=== PATIENT | male | born 1945 | race Caucasian/White ===

== ENCOUNTER 2019-01-30 21:22 | Inpatient (IN) | payer MEDICARE ==
[~2019-01-30] VITALS: Ht 185.4 cm; Wt 109.4 kg
[2019-01-30] MEDS ORDERED: PLEASE ENTER ALLERGIES MC SCH (22:00)
[2019-01-30] MEDS ORDERED: SODIUM CHLORIDE FLUSH 10ML SYR IVF ONE (22:00)
--- NOTE | 2019-01-30 22:02 | NUR ---
ROLANDA. REPORT RECEIVED EMS. PT C/O GENERALIZED WEAKNESS/JERKY MOVEMENT/UNCONTROL BLLADER X 1 MONTH AND IT'S GETTING WORSE. PT HAS HX OF A-FIB. PT DENIES CP AT THIS TIME. ALL MONITORS IN PLACE. CALL LIGHT WITHIN REACH. FAMILY AT BEDSIDE. EDMD AT BEDSIDE TO ASSESS.
--- NOTE | 2019-01-30 22:14 | NUR ---
PT PROVIDED URINAL AT BEDSIDE.
[2019-01-30 22:35] LABS: BASOPHILS # (AUTO) 0.01 x10^3/uL (0-0.1); BASOPHILS % (AUTO) 0 % (0-1); EOSINOPHILS # (AUTO) 0.02 x10^3/uL (0-0.4); EOSINOPHILS % (AUTO) 0 % (1-7); LYMPHOCYTES # (AUTO) 1.36 x10^3/uL (1-3.4); LYMPHOCYTES % (AUTO) 12 % (22-44); MD NO; MEAN CORPUSCULAR HEMOGLOBIN 28.2 pg (27.5-34.5); MEAN CORPUSCULAR HGB CONC 33.5 g/dL (33.2-36.2); MONOCYTES # (AUTO) 0.65 x10^3/uL (0.2-0.8); MONOCYTES % (AUTO) 6 % (2-9); NEUTROPHILS # (AUTO) 9.23 x10^3/uL (1.8-6.8); NEUTROPHILS % (AUTO) 82 % (42-75); PLATELET COUNT 284 x10^3/uL (130-400); RED BLOOD COUNT 5.37 x10^6/uL (4.38-5.82); RED CELL DISTRIBUTION WIDTH 14.1 % (9.4-14.8)
[2019-01-30 22:46] LABS: ALANINE AMINOTRANSFERASE 20 U/L (12-78); ALBUMIN 3.6 g/dL (3.4-5.0); ANION GAP 12 mmol/L (5-15); CALCIUM 8.7 mg/dL (8.5-10.1); CHLORIDE 83 mmol/L (98-107)
[2019-01-30 22:47] LABS: MICROSCOPIC INDICATED
[2019-01-30] MEDS ORDERED: FURO20TA3 PO (22:48)
[2019-01-30] MEDS ORDERED: SPIR25TA PO (22:48)
[2019-01-30] MEDS ORDERED: ASPI-496 PO (22:49)
[2019-01-30] MEDS ORDERED: GLUC1CAP18 PO (22:49)
[2019-01-30] MEDS ORDERED: CHOL10003 PO (22:50)
[2019-01-30 22:51] LABS: ALKALINE PHOSPHATASE 138 U/L (45-117); BILIRUBIN,TOTAL 0.8 mg/dL (0.2-1.0); TOTAL PROTEIN 6.7 g/dL (6.4-8.2)
[2019-01-30] MEDS ORDERED: APIX5TAB PO (22:51)
[2019-01-30] MEDS ORDERED: FISH1CAP PO (22:51)
[2019-01-30 22:52] LABS: CULTURE INDICATED? YES
[2019-01-30 22:52] LABS: INTERNATIONAL NORMALIZED RATIO 1.02 (0.93-1.1); PROTHROMBIN TIME 10.7 Seconds (9.6-11.5)
[2019-01-30] MEDS ORDERED: GABA600T7 PO (22:52)
[2019-01-30] MEDS ORDERED: LISI-170 PO (22:52)
[2019-01-30] MEDS ORDERED: METO50TA4 PO (22:53)
[2019-01-30] MEDS ORDERED: POTA10IV PO (22:53)
[2019-01-30] MEDS ORDERED: RIBO100T3 PO (22:54)
[2019-01-30] MEDS ORDERED: GARL10002 PO (22:54)
[2019-01-30] MEDS ORDERED: DULO30CA2 PO (22:55)
[2019-01-30] MEDS ORDERED: AMLO-150 PO (22:55)
[2019-01-30] MEDS ORDERED: POLY17PO5 PO (22:56)
[2019-01-30] MEDS ORDERED: PRAM0.125 PO (22:56)
[2019-01-30] MEDS ORDERED: HYDR-3237 PO (22:57)
[2019-01-30] MEDS ORDERED: DOXY25TA52 PO (22:58)
[2019-01-30] MEDS ORDERED: TRAZ50TA66 PO (22:58)
[2019-01-30] MEDS ORDERED: ZALE10CA PO (22:59)
[2019-01-30] MEDS ORDERED: AMIO100T4 PO (22:59)
[2019-01-30] MEDS ORDERED: SODIUM CHLORIDE 0.9% 1,000 ML IV ONE (23:18)
[2019-01-30] MEDS ORDERED: ASPIRIN 81 MG TABLET CHEW PO ONE (23:30)
[2019-01-30] MEDS ORDERED: INSULIN REGULAR 100 UNITS/ML, 3ML VIAL SQ-INSULIN ONE (23:30)
[2019-01-30] MEDS ORDERED: FLUCONAZOLE 50 MG TABLET PO ONE (23:30)
[2019-01-30] MEDS ORDERED: FLUCONAZOLE 100 MG TABLET ONE (23:31)
[2019-01-30 23:35] LABS: HEMOGLOBIN A1C 13.4 % (4.2-6.3)
[2019-01-30] MEDS ORDERED: INSULIN SINGLE DOSE, ER SQ-INSULIN ONE (23:37)
[2019-01-30 23:51] LABS: ACETONE, SERUM Small (20mg/dL) mg/dL (Negative)
--- NOTE | 2019-01-30 23:51 | NUR ---
REPORT GIVEN TO SERGIO JONES. ALL QUESTIONS ANSWERED.
--- NOTE | 2019-01-30 23:51 | NUR ---
PT MEDICATED PER EMAR. PT TOLERATED WELL. PT'S AOX4. RESPS EVEN AND UNLABORED.
[2019-01-31] MEDS ORDERED: hydrALAzine 20 MG/ML, 1ML IVPush PRN (01:00)
[2019-01-31] MEDS ORDERED: POLYETHYLENE GLYCOL 17 GM PACKET PO PRN (01:00)
[2019-01-31] MEDS ORDERED: ONDANSETRON ODT 4 MG PO PRN (01:00)
[2019-01-31] MEDS ORDERED: DOCUSATE 100 MG CAPSULE PO PRN (01:00)
[2019-01-31] MEDS ORDERED: BISACODYL 10 MG SUPP PR PRN (01:00)
[2019-01-31] MEDS ORDERED: LABETALOL 5MG/ML, 20ML IVPush PRN (01:00)
[2019-01-31] MEDS ORDERED: ONDANSETRON 2MG/ML, 2ML IVPush PRN (01:00)
[2019-01-31] MEDS ORDERED: morphine SULFATE 10 MG/ML, 1ML IVPush PRN (01:00)
[2019-01-31] MEDS ORDERED: ACETAMINOPHEN 325 MG TABLET PO PRN (01:00)
[2019-01-31] MEDS ORDERED: PROMETHAZINE 25 MG/ML, 1ML IM PRN (01:00)
[2019-01-31] MEDS: SODIUM CHLORIDE 0.9% 1,000 ML IV SCH ×2 (01:51→08:39)
[2019-01-31] MEDS: INSULIN GLARGINE 100 UNITS/ML, PEN SQ-INSULIN SCH ×2 (01:52→21:21)
[2019-01-31] MEDS ORDERED: INSULIN LISPRO 100 UNITS/ML, PEN SQ-INSULIN ONE (02:30)
[2019-01-31 03:55] VITALS: BP 140/79
[2019-01-31 05:23] LABS: BASOPHILS # (AUTO) 0.07 x10^3/uL (0-0.1); BASOPHILS % (AUTO) 1 % (0-1); EOSINOPHILS # (AUTO) 0.06 x10^3/uL (0-0.4); EOSINOPHILS % (AUTO) 0 % (1-7); LYMPHOCYTES # (AUTO) 3.58 x10^3/uL (1-3.4); LYMPHOCYTES % (AUTO) 23 % (22-44); MD NO; MEAN CORPUSCULAR HEMOGLOBIN 28.3 pg (27.5-34.5); MEAN CORPUSCULAR VOLUME 83.2 fL (81-97); MEAN PLATELET VOLUME 10.6 fL (7.4-10.4); MONOCYTES # (AUTO) 1.13 x10^3/uL (0.2-0.8); MONOCYTES % (AUTO) 7 % (2-9); NEUTROPHILS % (AUTO) 69 % (42-75); PLATELET COUNT 311 x10^3/uL (130-400); RED BLOOD COUNT 5.53 x10^6/uL (4.38-5.82); RED CELL DISTRIBUTION WIDTH 14.2 % (9.4-14.8)
[2019-01-31 05:28] LABS: ALBUMIN 3.5 g/dL (3.4-5.0); ANION GAP 11 mmol/L (5-15); CHLORIDE 96 mmol/L (98-107); TROPONIN I 0.066 ng/mL (0.000-0.045)
[2019-01-31 05:33] LABS: ALANINE AMINOTRANSFERASE 21 U/L (12-78); ALKALINE PHOSPHATASE 113 U/L (45-117); BILIRUBIN,TOTAL 0.7 mg/dL (0.2-1.0); CHOL/HDL RATIO 4.2; CHOLESTEROL, TOTAL 140 mg/dL (140-239); CREATININE 1.79 mg/dL (0.7-1.3); HDL CHOLESTEROL (DIRECT) 33 mg/dL (40-60); TOTAL PROTEIN 6.5 g/dL (6.4-8.2); TRIGLYCERIDES 195 mg/dL (50-200); VLDL CHOLESTEROL 39 mg/dL (0-25)
[2019-01-31 05:34] LABS: HDL CHOL % 24 % (26-37); LDL CHOLESTEROL,CALCULATED 68 mg/dL (54-169); LDL/HDL RATIO 2.1 (0.5-3.0)
[2019-01-31] MEDS: INSULIN LISPRO 100 UNITS/ML, PEN SQ-INSULIN SCH ×4 (08:39→21:21)
[2019-01-31] MEDS: PRAMIPEXOLE 0.125MG TABLET PO SCH (08:40)
[2019-01-31] MEDS: CHOLECALCIFEROL 1,000 UNIT TABLET PO SCH (08:40)
[2019-01-31] MEDS: GABAPENTIN 300 MG CAPSULE PO SCH (08:40)
[2019-01-31] MEDS: AMLODIPINE 5 MG TABLET PO SCH (08:40)
[2019-01-31] MEDS: DULOXETINE 30 MG CAPSULE.DR PO SCH ×2 (08:40→21:19)
[2019-01-31] MEDS: ASPIRIN 81 MG TABLET EC PO SCH (08:40)
[2019-01-31] MEDS: APIXABAN 5 MG TABLET PO SCH ×2 (08:40→21:19)
[2019-01-31] MEDS: DOXYLAMINE 25MG TABLET PO SCH (08:40)
[2019-01-31] MEDS: OMEGA-3/FISH OIL CAPSULE PO SCH (08:40)
[2019-01-31] MEDS: AMIODARONE 200 MG TABLET PO SCH (08:41)
[2019-01-31] MEDS: METOPROLOL SUCCINATE 50 MG TAB.ER.24H PO SCH (08:41)
[2019-01-31] MEDS: TRAZODONE 50MG TABLET PO SCH (08:41)
[2019-01-31 08:44] VITALS: BP 126/81
[2019-01-31] MEDS: POLYETHYLENE GLYCOL 17 GM PACKET PO SCH (08:49)
[2019-01-31] MEDS: RIBOFLAVIN 100 MG HOMEMEDPO SCH (08:49)
[2019-01-31] MEDS ORDERED: POTASSIUM CHLORIDE 40 MEQ in SODIUM CHLORIDE 0.9% 500 ML IV ONE (10:30)
[2019-01-31 11:09] LABS: TROPONIN I 0.059 ng/mL (0.000-0.045)
[2019-01-31 13:38] VITALS: BP 98/61
[2019-01-31 19:33] VITALS: BP 139/68
[2019-01-31] MEDS: ZOLPIDEM 5MG TABLET PO SCH (21:19)
[2019-01-31] MEDS: HYDROcodone/APAP 5/325 TABLET PO PRN (23:17)
[2019-02-01 00:49] VITALS: BP 119/77
[2019-02-01] MEDS: SODIUM CHLORIDE 0.9% 1,000 ML IV SCH (05:39)
[2019-02-01 06:21] LABS: BASOPHILS # (AUTO) 0.06 x10^3/uL (0-0.1); BASOPHILS % (AUTO) 1 % (0-1); EOSINOPHILS # (AUTO) 0.09 x10^3/uL (0-0.4); EOSINOPHILS % (AUTO) 1 % (1-7); LYMPHOCYTES % (AUTO) 18 % (22-44); MD NO; MEAN CORPUSCULAR HEMOGLOBIN 27.5 pg (27.5-34.5); MEAN CORPUSCULAR HGB CONC 33.2 g/dL (33.2-36.2); MEAN CORPUSCULAR VOLUME 82.9 fL (81-97); MEAN PLATELET VOLUME 10.4 fL (7.4-10.4); MONOCYTES % (AUTO) 5 % (2-9); NEUTROPHILS # (AUTO) 8.55 x10^3/uL (1.8-6.8); NEUTROPHILS % (AUTO) 76 % (42-75); PLATELET COUNT 253 x10^3/uL (130-400); RED BLOOD COUNT 5.37 x10^6/uL (4.38-5.82); RED CELL DISTRIBUTION WIDTH 14.9 % (9.4-14.8)
[2019-02-01 06:37] LABS: ANION GAP 7 mmol/L (5-15); CALCIUM 8.2 mg/dL (8.5-10.1); CHLORIDE 103 mmol/L (98-107)
[2019-02-01 06:49] LABS: CREATININE 1.37 mg/dL (0.7-1.3); THYROID STIMULATING HORMONE 0.664 mIU/L (0.358-3.740)
[2019-02-01 07:37] VITALS: BP 173/97
[2019-02-01] MEDS: DOXYLAMINE 25MG TABLET PO SCH (09:00)
[2019-02-01] MEDS: RIBOFLAVIN 100 MG HOMEMEDPO SCH (09:00)
[2019-02-01] MEDS: INSULIN LISPRO 100 UNITS/ML, PEN SQ-INSULIN SCH ×4 (09:19→20:23)
[2019-02-01 09:20] VITALS: BP 154/91
[2019-02-01] MEDS: AMIODARONE 200 MG TABLET PO SCH (09:20)
[2019-02-01] MEDS: PRAMIPEXOLE 0.125MG TABLET PO SCH (09:20)
[2019-02-01] MEDS: GABAPENTIN 300 MG CAPSULE PO SCH (09:21)
[2019-02-01] MEDS: CHOLECALCIFEROL 1,000 UNIT TABLET PO SCH (09:21)
[2019-02-01] MEDS: AMLODIPINE 5 MG TABLET PO SCH (09:21)
[2019-02-01] MEDS: OMEGA-3/FISH OIL CAPSULE PO SCH (09:21)
[2019-02-01] MEDS: TRAZODONE 50MG TABLET PO SCH (09:21)
[2019-02-01] MEDS: APIXABAN 5 MG TABLET PO SCH ×2 (09:21→20:23)
[2019-02-01] MEDS: DULOXETINE 30 MG CAPSULE.DR PO SCH ×2 (09:21→20:23)
[2019-02-01] MEDS: ASPIRIN 81 MG TABLET EC PO SCH (09:21)
[2019-02-01] MEDS: METOPROLOL SUCCINATE 50 MG TAB.ER.24H PO SCH (09:22)
[2019-02-01] MEDS: POLYETHYLENE GLYCOL 17 GM PACKET PO SCH (09:23)
[2019-02-01] MEDS: HYDROcodone/APAP 5/325 TABLET PO PRN ×2 (11:07→16:55)
[2019-02-01 13:51] VITALS: BP 91/65
[2019-02-01] MEDS ORDERED: ERGOCALCIFEROL 50,000 UNIT CAPSULE PO SCH (15:30)
[2019-02-01] MEDS ORDERED: POTASSIUM CHLORIDE 40 MEQ in SODIUM CHLORIDE 0.9% 500 ML IV ONE (15:30)
[2019-02-01] MEDS ORDERED: GADOBUTROL 10 MMOL/10 ML PFS ONE (19:11)
[2019-02-01] MEDS: INSULIN GLARGINE 100 UNITS/ML, PEN SQ-INSULIN SCH (20:22)
[2019-02-01] MEDS: ZOLPIDEM 5MG TABLET PO SCH (20:23)
[2019-02-01 21:11] VITALS: BP 120/80
[2019-02-02] MEDS: HYDROcodone/APAP 5/325 TABLET PO PRN ×3 (00:13→16:33)
[2019-02-02] MEDS ORDERED: POTASSIUM CHLORIDE 20 MEQ TAB.ER.PRT PO ONE (01:00)
[2019-02-02 03:31] VITALS: BP 155/73
[2019-02-02 06:23] LABS: BASOPHILS # (AUTO) 0.04 x10^3/uL (0-0.1); BASOPHILS % (AUTO) 0 % (0-1); EOSINOPHILS # (AUTO) 0.22 x10^3/uL (0-0.4); EOSINOPHILS % (AUTO) 2 % (1-7); LYMPHOCYTES # (AUTO) 2.91 x10^3/uL (1-3.4); LYMPHOCYTES % (AUTO) 22 % (22-44); MD NO; MEAN CORPUSCULAR HEMOGLOBIN 28.2 pg (27.5-34.5); MEAN CORPUSCULAR HGB CONC 33.6 g/dL (33.2-36.2); MEAN CORPUSCULAR VOLUME 83.9 fL (81-97); MEAN PLATELET VOLUME 11.1 fL (7.4-10.4); MONOCYTES # (AUTO) 0.81 x10^3/uL (0.2-0.8); MONOCYTES % (AUTO) 6 % (2-9); NEUTROPHILS # (AUTO) 9.28 x10^3/uL (1.8-6.8); NEUTROPHILS % (AUTO) 70 % (42-75); PLATELET COUNT 259 x10^3/uL (130-400); RED BLOOD COUNT 5.35 x10^6/uL (4.38-5.82); RED CELL DISTRIBUTION WIDTH 14.9 % (9.4-14.8)
[2019-02-02 06:28] LABS: ANION GAP 7 mmol/L (5-15); CALCIUM 8.7 mg/dL (8.5-10.1); CHLORIDE 106 mmol/L (98-107); CREATININE 1.34 mg/dL (0.7-1.3)
[2019-02-02 07:21] VITALS: BP 112/75
[2019-02-02] MEDS: INSULIN LISPRO 100 UNITS/ML, PEN SQ-INSULIN SCH ×4 (08:02→21:31)
[2019-02-02] MEDS: POLYETHYLENE GLYCOL 17 GM PACKET PO SCH (08:02)
[2019-02-02] MEDS: GABAPENTIN 300 MG CAPSULE PO SCH (08:03)
[2019-02-02] MEDS: CHOLECALCIFEROL 1,000 UNIT TABLET PO SCH (08:03)
[2019-02-02] MEDS: TRAZODONE 50MG TABLET PO SCH (08:03)
[2019-02-02] MEDS: OMEGA-3/FISH OIL CAPSULE PO SCH (08:03)
[2019-02-02] MEDS: APIXABAN 5 MG TABLET PO SCH ×2 (08:03→21:31)
[2019-02-02] MEDS: DOXYLAMINE 25MG TABLET PO SCH (08:03)
[2019-02-02] MEDS: AMIODARONE 200 MG TABLET PO SCH (08:03)
[2019-02-02] MEDS: DULOXETINE 30 MG CAPSULE.DR PO SCH ×2 (08:03→21:31)
[2019-02-02] MEDS: METOPROLOL SUCCINATE 50 MG TAB.ER.24H PO SCH (08:03)
[2019-02-02] MEDS: RIBOFLAVIN 100 MG HOMEMEDPO SCH (08:04)
[2019-02-02] MEDS: AMLODIPINE 5 MG TABLET PO SCH (08:04)
[2019-02-02] MEDS: ASPIRIN 81 MG TABLET EC PO SCH (08:04)
[2019-02-02] MEDS: PRAMIPEXOLE 0.125MG TABLET PO SCH (08:04)
[2019-02-02] MEDS ORDERED: HYDR-3240 PO (14:20)
[2019-02-02] MEDS ORDERED: INSU100I11 SQ-INSULIN (14:20)
[2019-02-02] MEDS ORDERED: INSU100I13 SQ-INSULIN (14:20)
[2019-02-02] MEDS ORDERED: POLY17PO5 PO (14:20)
[2019-02-02] MEDS ORDERED: ERGO500017 PO (14:20)
[2019-02-02] MEDS ORDERED: DOCU-131 PO (14:20)
[2019-02-02] MEDS ORDERED: MAGNESIUM CITRATE 300ML ORAL SOL ONE (14:22)
[2019-02-02] MEDS ORDERED: MAGNESIUM CITRATE 300ML ORAL SOL PO ONE (14:30)
[2019-02-02 15:40] VITALS: BP 126/76
[2019-02-02 20:16] VITALS: BP 100/69
[2019-02-02] MEDS: ZOLPIDEM 5MG TABLET PO SCH (21:31)
[2019-02-02] MEDS: INSULIN GLARGINE 100 UNITS/ML, PEN SQ-INSULIN SCH (21:32)
[2019-02-03 01:51] VITALS: BP 109/72
[2019-02-03 05:36] LABS: BASOPHILS # (AUTO) 0.01 x10^3/uL (0-0.1); BASOPHILS % (AUTO) 0 % (0-1); EOSINOPHILS # (AUTO) 0.23 x10^3/uL (0-0.4); EOSINOPHILS % (AUTO) 2 % (1-7); LYMPHOCYTES # (AUTO) 1.82 x10^3/uL (1-3.4); LYMPHOCYTES % (AUTO) 17 % (22-44); MD NO; MEAN CORPUSCULAR HGB CONC 33.6 g/dL (33.2-36.2); MEAN CORPUSCULAR VOLUME 83.4 fL (81-97); MEAN PLATELET VOLUME 10.8 fL (7.4-10.4); MONOCYTES # (AUTO) 0.51 x10^3/uL (0.2-0.8); MONOCYTES % (AUTO) 5 % (2-9); NEUTROPHILS # (AUTO) 8.45 x10^3/uL (1.8-6.8); NEUTROPHILS % (AUTO) 77 % (42-75); PLATELET COUNT 249 x10^3/uL (130-400); RED BLOOD COUNT 5.36 x10^6/uL (4.38-5.82); RED CELL DISTRIBUTION WIDTH 14.5 % (9.4-14.8)
[2019-02-03] MEDS: HYDROcodone/APAP 5/325 TABLET PO PRN ×3 (05:42→17:47)
[2019-02-03 05:49] LABS: CHLORIDE 104 mmol/L (98-107)
[2019-02-03 05:53] LABS: ANION GAP 6 mmol/L (5-15); CALCIUM 8.6 mg/dL (8.5-10.1); CREATININE 1.14 mg/dL (0.7-1.3)
[2019-02-03 06:57] VITALS: BP 124/81
[2019-02-03] MEDS: INSULIN LISPRO 100 UNITS/ML, PEN SQ-INSULIN SCH ×3 (07:00→16:00)
[2019-02-03] MEDS ORDERED: REGADENOSON 0.4 MG/5 ML SYRINGE ONE (08:35)
[2019-02-03] MEDS: POLYETHYLENE GLYCOL 17 GM PACKET PO SCH (09:00)
[2019-02-03] MEDS: TRAZODONE 50MG TABLET PO SCH (09:00)
[2019-02-03] MEDS: DOXYLAMINE 25MG TABLET PO SCH (09:00)
[2019-02-03] MEDS: RIBOFLAVIN 100 MG HOMEMEDPO SCH (09:00)
[2019-02-03] MEDS: PRAMIPEXOLE 0.125MG TABLET PO SCH (11:50)
[2019-02-03] MEDS: METOPROLOL SUCCINATE 50 MG TAB.ER.24H PO SCH (11:50)
[2019-02-03] MEDS: ASPIRIN 81 MG TABLET EC PO SCH (11:50)
[2019-02-03] MEDS: CHOLECALCIFEROL 1,000 UNIT TABLET PO SCH (11:50)
[2019-02-03] MEDS: APIXABAN 5 MG TABLET PO SCH (11:50)
[2019-02-03] MEDS: AMIODARONE 200 MG TABLET PO SCH (11:50)
[2019-02-03] MEDS: DULOXETINE 30 MG CAPSULE.DR PO SCH (11:51)
[2019-02-03] MEDS: GABAPENTIN 300 MG CAPSULE PO SCH (11:51)
[2019-02-03] MEDS: AMLODIPINE 5 MG TABLET PO SCH (11:51)
[2019-02-03] MEDS: OMEGA-3/FISH OIL CAPSULE PO SCH (11:51)
[2019-02-03 14:22] VITALS: BP 115/75
== END 2019-02-03 18:10 | DRG 682 ==
LOC: ED 23:00 → EDIP 23:12 → ED 23:40 → 4WST 01-31 00:04
PROVIDERS: ADMIT Internal Medicine; ATTEND Internal Medicine
DX: N17.0 Acute kidney failure with tubular necrosis (principal); G93.41 Metabolic encephalopathy; D68.69 Other thrombophilia; B37.49 Other urogenital candidiasis; I48.2 Chronic atrial fibrillation; M54.5 Low back pain; G89.29 Other chronic pain; E11.65 Type 2 diabetes mellitus with hyperglycemia; E55.9 Vitamin D deficiency, unspecified; E86.0 Dehydration; I11.0 Hypertensive heart disease with heart failure; I50.9 Heart failure, unspecified; M51.34 Other intervertebral disc degeneration, thoracic region; R29.6 Repeated falls; R32 Unspecified urinary incontinence; Z98.1 Arthrodesis status; Z88.8 Allergy status to other drugs, medicaments and biological substances; Z79.01 Long term (current) use of anticoagulants; Z87.891 Personal history of nicotine dependence
CPT/HCPCS: 36415; 70450; 71045; 72156; 72157; 72158; 78452; 80048; 80053; 80061; 81001; 82010; 82306; 82607; 82800; 82947; 82962; 83036; 83735; 83880; 83930; 84100; 84443; 84484; 85025; 85610; 87086; 87106; 93005; 93017; 93306; 96372; 99291; A9585; G0378; J2785; J3480; A9502; C9898; J1815; J2270; J7030; J7040

== ENCOUNTER → 2019-05-04 | Outpatient (CLI) | payer MEDICARE ==
[~2019-05-04] MED LIST: AMIO100T4 PO; AMLO-150 PO; APIX5TAB PO; ASPI-496 PO; CHOL10003 PO; DOCU-131 PO; DOXY25TA52 PO; DULO30CA2 PO; ERGO500017 PO; FISH1CAP PO; FURO20TA3 PO; GABA600T7 PO; GARL10002 PO; GLUC1CAP18 PO; HYDR-3237 PO; HYDR-3240 PO; INSU100I11 SQ-INSULIN; INSU100I13 SQ-INSULIN; LISI-170 PO; METO50TA4 PO; POLY17PO5 PO; POTA10IV PO; PRAM0.125 PO; RIBO100T3 PO; SPIR25TA PO; TRAZ50TA66 PO; ZALE10CA PO
== END | disposition home or self-care (01) ==
LOC: PETCFH 12:19
PROVIDERS: ATTEND Internal Medicine Cardiovascular Disease
DX: I42.9 Cardiomyopathy, unspecified (principal); R94.31 Abnormal electrocardiogram [ECG] [EKG]
CPT/HCPCS: 78472; A9560

== ENCOUNTER 2020-06-10 10:41 | Inpatient (IN) | payer MEDICARE ==
[~2020-06-10] VITALS: Ht 182.9 cm; Wt 121.8 kg
--- NOTE | 2020-06-10 11:11 | NUR ---
Went to ED in [facility] for "sleeping too much". Found to be in afib (questionable new onset) in the 40s. Transferred to [facility] via ambulance. In [facility] ED, denies all complaints. Denies CP, SOB, palpitations, dizziness, ABD pain, N/V/D. A&Ox4. Hard of hearing. Placed on NIBP, pulse ox, and monitor worker. NAD. Will continue to monitor.
[2020-06-10] MEDS ORDERED: SODIUM CHLORIDE FLUSH 10ML SYR IVF ONE (11:30)
[2020-06-10 11:34] LABS: BASOPHILS # (AUTO) 0.03 x10^3/uL (0-0.1); BASOPHILS % (AUTO) 0 % (0-1); EOSINOPHILS % (AUTO) 3 % (1-7); LYMPHOCYTES # (AUTO) 1.99 x10^3/uL (1-3.4); LYMPHOCYTES % (AUTO) 18 % (22-44); MD NO; MEAN CORPUSCULAR HEMOGLOBIN 27.7 pg (27.5-34.5); MEAN CORPUSCULAR HGB CONC 32.7 g/dL (33.2-36.2); MEAN PLATELET VOLUME 8.7 fL (7.4-10.4); MONOCYTES # (AUTO) 0.55 x10^3/uL (0.2-0.8); MONOCYTES % (AUTO) 5 % (2-9); NEUTROPHILS # (AUTO) 8.47 x10^3/uL (1.8-6.8); NEUTROPHILS % (AUTO) 75 % (42-75); PLATELET COUNT 288 x10^3/uL (130-400); RED BLOOD COUNT 4.81 x10^6/uL (4.38-5.82); RED CELL DISTRIBUTION WIDTH 14.9 % (9.4-14.8)
[2020-06-10 11:44] LABS: INTERNATIONAL NORMALIZED RATIO 0.95 (0.93-1.1); PROTHROMBIN TIME 10.1 Seconds (9.6-11.5)
[2020-06-10 11:50] LABS: CHLORIDE 107 mmol/L (98-107)
[2020-06-10 11:59] LABS: ALANINE AMINOTRANSFERASE 14 U/L (12-78); ALBUMIN 3.5 g/dL (3.4-5.0); ALKALINE PHOSPHATASE 88 U/L (45-117); ANION GAP 5 mmol/L (5-15); BILIRUBIN,TOTAL 0.4 mg/dL (0.2-1.0); CALCIUM 9.6 mg/dL (8.5-10.1); CREATININE 1.27 mg/dL (0.7-1.3); TOTAL PROTEIN 6.9 g/dL (6.4-8.2); TROPONIN I 0.028 ng/mL (0.000-0.045)
--- NOTE | 2020-06-10 12:00 | NUR ---
Resting in [place]. No needs. HR remains in the 40s. Patient is asymptomatic.
[2020-06-10] MEDS ORDERED: HYDR-3246 PO (12:21)
[2020-06-10] MEDS ORDERED: CLON0.1T22 PO (12:21)
[2020-06-10] MEDS ORDERED: POTA20TA89 PO (12:21)
[2020-06-10] MEDS ORDERED: SERT50TA28 PO (12:21)
[2020-06-10] MEDS ORDERED: TRAZ150T62 PO (12:21)
[2020-06-10] MEDS ORDERED: HYDROcodone/APAP 10/325 MG TABLET ONE (12:53)
[2020-06-10] MEDS ORDERED: HYDROcodone/APAP 10/325 MG TABLET PO ONE (13:00)
[2020-06-10] MEDS ORDERED: ONDANSETRON ODT 4 MG PO PRN (13:30)
[2020-06-10] MEDS ORDERED: ENALAPRILAT 1.25 MG/ML, 2ML IVPush PRN (13:30)
[2020-06-10] MEDS ORDERED: ACETAMINOPHEN 325 MG TABLET PO PRN (13:30)
[2020-06-10] MEDS ORDERED: ONDANSETRON 2MG/ML, 2ML IVPush PRN (13:30)
[2020-06-10] MEDS ORDERED: MELATONIN 5 MG TABLET PO PRN (13:30)
[2020-06-10] MEDS ORDERED: morphine SULFATE 10 MG/ML, 1ML IVPush PRN (13:30)
--- NOTE | 2020-06-10 13:35 | NUR ---
Ambulated with a steady gait to the restroom.
[2020-06-10 14:23] VITALS: BP 208/92
[2020-06-10] MEDS ORDERED: MIDAZOLAM 1 MG/ML, 5ML ONE (15:55)
[2020-06-10] MEDS ORDERED: CEFAZOLIN PMX 1GM/50ML 50 ML ONE (15:55)
[2020-06-10] MEDS ORDERED: FENTANYL PF 100 MCG/2ML ONE (15:55)
[2020-06-10] MEDS ORDERED: CEFAZOLIN 1,000 MG ONE (15:56)
[2020-06-10] MEDS ORDERED: LIDOCAINE 2%, 20ML ONE (15:56)
[2020-06-10] MEDS ORDERED: HYDROcodone/APAP 5/325 TABLET PO PRN (17:30)
[2020-06-10] MEDS ORDERED: HOLD MEDICATION MC PRN (17:30)
[2020-06-10] MEDS: SODIUM CHLORIDE 0.9% 1,000 ML IV SCH ×2 (19:25→19:27)
[2020-06-10] MEDS: DULOXETINE 30 MG CAPSULE.DR PO SCH (20:23)
[2020-06-10] MEDS: HYDROcodone/APAP 10/325 MG TABLET PO SCH (20:25)
[2020-06-10] MEDS: SODIUM CHLORIDE FLUSH 10ML SYR IVF SCH (20:25)
[2020-06-10 20:30] VITALS: BP 135/78
[2020-06-10] MEDS: INSULIN LISPRO 100 UNITS/ML, PEN SQ-INSULIN SCH (20:57)
[2020-06-10] MEDS ORDERED: TRAZODONE 150MG TABLET PO SCH (21:00)
[2020-06-10] MEDS ORDERED: APIXABAN 5 MG TABLET PO SCH (21:00)
[2020-06-10] MEDS: CEFAZOLIN PMX 1GM/50ML 50 ML IVPB SCH (23:02)
[2020-06-11 01:10] VITALS: BP 133/85
[2020-06-11 05:44] LABS: BASOPHILS # (AUTO) 0.06 x10^3/uL (0-0.1); BASOPHILS % (AUTO) 1 % (0-1); EOSINOPHILS # (AUTO) 0.23 x10^3/uL (0-0.4); EOSINOPHILS % (AUTO) 2 % (1-7); LYMPHOCYTES # (AUTO) 1.68 x10^3/uL (1-3.4); LYMPHOCYTES % (AUTO) 15 % (22-44); MD NO; MEAN CORPUSCULAR HEMOGLOBIN 27.3 pg (27.5-34.5); MEAN CORPUSCULAR HGB CONC 31.9 g/dL (33.2-36.2); MEAN PLATELET VOLUME 8.5 fL (7.4-10.4); MONOCYTES % (AUTO) 8 % (2-9); NEUTROPHILS # (AUTO) 8.55 x10^3/uL (1.8-6.8); NEUTROPHILS % (AUTO) 75 % (42-75); PLATELET COUNT 272 x10^3/uL (130-400); RED BLOOD COUNT 5.17 x10^6/uL (4.38-5.82); RED CELL DISTRIBUTION WIDTH 15.1 % (9.4-14.8)
[2020-06-11 05:50] LABS: ALBUMIN 3.4 g/dL (3.4-5.0); ANION GAP 8 mmol/L (5-15); CALCIUM 8.5 mg/dL (8.5-10.1); CHLORIDE 106 mmol/L (98-107)
[2020-06-11] MEDS: HYDROcodone/APAP 10/325 MG TABLET PO SCH ×2 (05:50→12:49)
[2020-06-11 05:54] LABS: ALANINE AMINOTRANSFERASE 16 U/L (12-78); ALKALINE PHOSPHATASE 80 U/L (45-117); BILIRUBIN,TOTAL 0.5 mg/dL (0.2-1.0); CREATININE 1.02 mg/dL (0.7-1.3); TOTAL PROTEIN 7.4 g/dL (6.4-8.2)
[2020-06-11] MEDS: INSULIN LISPRO 100 UNITS/ML, PEN SQ-INSULIN SCH ×2 (07:00→11:15)
[2020-06-11] MEDS: CEFAZOLIN PMX 1GM/50ML 50 ML IVPB SCH (07:05)
[2020-06-11] MEDS ORDERED: POTASSIUM CHLORIDE 20 MEQ TAB.ER.PRT PO SCH (08:00)
[2020-06-11 08:07] VITALS: BP 149/87
[2020-06-11] MEDS ORDERED: POTASSIUM CHLORIDE 20 MEQ TAB.ER.PRT PO ONE ×2 (08:30→09:30)
[2020-06-11] MEDS: DULOXETINE 30 MG CAPSULE.DR PO SCH (08:42)
[2020-06-11] MEDS: SODIUM CHLORIDE FLUSH 10ML SYR IVF SCH (08:44)
[2020-06-11] MEDS ORDERED: PRAMIPEXOLE 0.125MG TABLET PO SCH (09:00)
[2020-06-11] MEDS ORDERED: FUROSEMIDE 20 MG TABLET PO SCH (09:00)
[2020-06-11] MEDS ORDERED: AMLODIPINE 5 MG TABLET PO SCH (09:00)
[2020-06-11] MEDS ORDERED: CHOLECALCIFEROL 1,000 UNIT TABLET PO SCH (09:00)
[2020-06-11] MEDS ORDERED: SERTRALINE 50MG TABLET PO SCH (09:00)
[2020-06-11] MEDS ORDERED: ASPIRIN 81 MG TABLET EC PO SCH (09:00)
[2020-06-11] MEDS ORDERED: LISINOPRIL 10 MG TABLET PO SCH (09:00)
[2020-06-11] MEDS ORDERED: SPIRONOLACTONE 25 MG TABLET PO SCH (09:00)
[2020-06-11] MEDS ORDERED: SENNA/DOCUSATE TABLET PO SCH (09:00)
[2020-06-11] MEDS ORDERED: AMIODARONE 200 MG TABLET PO SCH (10:30)
[2020-06-11] MEDS: SODIUM CHLORIDE 0.9% 1,000 ML IV SCH (11:20)
[2020-06-11] MEDS ORDERED: ATOR40TA78 PO (12:52)
[2020-06-11] MEDS ORDERED: APIX5TAB PO (12:52)
[2020-06-11 12:57] VITALS: BP 157/81
[2020-06-11] MEDS ORDERED: ATORVASTATIN 40 MG TABLET PO SCH (21:00)
[2020-06-12] MEDS ORDERED: METOPROLOL SUCCINATE 50 MG TAB.ER.24H PO SCH (06:00)
== END 2020-06-11 15:40 | disposition home or self-care (01) | DRG 242 ==
LOC: ED 11:48 → EDIP 11:49 → ED 12:28 → 5SO 14:15
PROVIDERS: ADMIT Internal Medicine; ATTEND Internal Medicine
PROC: 0JH604Z Insertion of Pacemaker, Single Chamber into Chest Subcutaneous Tissue and Fascia, Open Approach (ICD-10-PCS; principal; 2020-06-10)
PROC: 02HK3JZ Insertion of Pacemaker Lead into Right Ventricle, Percutaneous Approach (ICD-10-PCS; 2020-06-10)
DX: I49.5 Sick sinus syndrome (principal); N17.0 Acute kidney failure with tubular necrosis; I48.19 Other persistent atrial fibrillation; I50.32 Chronic diastolic (congestive) heart failure; I11.0 Hypertensive heart disease with heart failure; I42.9 Cardiomyopathy, unspecified; E66.9 Obesity, unspecified; I25.10 Atherosclerotic heart disease of native coronary artery without angina pectoris; E78.5 Hyperlipidemia, unspecified; D72.828 Other elevated white blood cell count; E11.9 Type 2 diabetes mellitus without complications; E87.6 Hypokalemia; G89.29 Other chronic pain; Z79.01 Long term (current) use of anticoagulants; Z87.891 Personal history of nicotine dependence; Z68.36 Body mass index [BMI] 36.0-36.9, adult; Z88.5 Allergy status to narcotic agent; Z88.8 Allergy status to other drugs, medicaments and biological substances
CPT/HCPCS: 33207; 36415; 71045; 80053; 82962; 83735; 83880; 84443; 84484; 85025; 85610; 93005; 93306; 99156; 99157; C1779; C1786; C1892; G0378; J0690; J2250; J3010; J1815